=== PATIENT | male | born 1995 | race Caucasian/White ===

== ENCOUNTER 2016-05-02 10:06 | Emergency (ER) | payer MEDICAID, OTHER ==
[~2016-05-02] VITALS: Ht 188 cm; Wt 65.8 kg
[2016-05-02] MEDS ORDERED: IOHEXOL 300 MG/ML 100ML BOTTLE IJ ONE (10:13)
[2016-05-02] MEDS ORDERED: SODIUM CHLORIDE 0.9% 500 ML IV ONE ×2 (10:13→11:00)
[2016-05-02] MEDS ORDERED: MORPHINE SULFATE 4 MG/ML SYRG IV ONE (11:00)
[2016-05-02] MEDS ORDERED: ONDANSETRON HCL 4 MG/2 ML VIAL IV ONE (11:00)
[2016-05-02 11:11] LABS: Basophils # (auto) 0 uL; Basophils % (auto) 0.1 % (0.0-2.0); DEFINITIVE VIEW TRANSMISSION; Eosinophils # (auto) 0 uL; Hemoglobin 11.6 g/dL (13.5-17.5); Lymphocytes # (auto) 0.8 uL; Lymphocytes % (auto) 4.3 % (10.0-50.0); Mean Corpuscular Hemoglobin 30.6 pg (28.0-32.0); Mean Corpuscular Hgb Conc. 34.2 g/dL (32.0-36.0); Mean Corpuscular Volume 89.5 fL (80.0-100.0); Mean Platelet Volume 7.7 fL (7.4-10.4); Monocytes # (auto) 1.9 uL; Monocytes % (auto) 9.7 % (0.0-12.0); Neutrophils # (auto) 16.6 uL; Neutrophils % (auto) 85.9 % (37.0-80.0); Platelet Count (auto) 333 10^3/uL (140-450); Red Cell Distribution Width 13.2 % (11.6-16.0); White Blood Cell 19.4 10^3/uL (4.4-10.8)
[2016-05-02 11:26] LABS: INR 1.14 (0.9-1.15); Partial Thromboplastin Time 24.8 sec (22.64-33.71); Prothrombin Time 11.7 sec (9.37-12.3)
[2016-05-02 11:37] LABS: Albumin 3.8 g/dL (3.4-5.0); BUN/Creatinine Ratio 17.6; Bilirubin, Total 1.5 mg/dL (0.2-1.0); Calcium 8.8 mg/dL (8.5-10.1); Magnesium 2.2 mg/dL (1.6-2.6); Potassium 4.8 mmol/L (3.5-5.1); Total Protein 6.7 g/dL (6.4-8.2)
[2016-05-02 12:15] VITALS: BP 138/93
[2016-05-02 13:00] LABS: Urine Bilirubin Negative (Negative); Urine Blood Negative /uL (Negative); Urine Color Yellow (Yellow); Urine Glucose Normal (Normal); Urine Mucus FEW (None Seen); Urine Nitrite Negative (Negative); Urine RBC 1 /hpf (0 - 3); Urine Urobilinogen Normal (Negative)
[2016-05-02 13:16] LABS: Urine Ketone 1+ (Negative)
== END 2016-05-02 12:17 | disposition short-term general hospital (02) ==
LOC: EDBD 10:06 → ER 10:06
DX: S62.101A Fracture of unspecified carpal bone, right wrist, initial encounter for closed fracture (principal); S36.00XA Unspecified injury of spleen, initial encounter; F17.210 Nicotine dependence, cigarettes, uncomplicated; F12.10 Cannabis abuse, uncomplicated; W17.89XA Other fall from one level to another, initial encounter; Y93.44 Activity, trampolining; Y99.8 Other external cause status; Y92.89 Other specified places as the place of occurrence of the external cause
CPT/HCPCS: 29125; 36415; 51702; 71260; 73100; 74177; 80053; 81001; 83735; 85025; 85610; 85730; 86850; 86900; 86901; 96361; 96374; 96375; 99291; J2270; J2405; J7030; Q9967

== ENCOUNTER 2018-05-23 12:20 | Emergency (ER) | payer MEDICAID ==
[~2018-05-23] VITALS: Ht 185.4 cm; Wt 68.0 kg
[2018-05-23 13:08] VITALS: BP 139/77
== END 2018-05-23 14:07 | disposition home or self-care (01) ==
LOC: ER 12:24
DX: S63.501A Unspecified sprain of right wrist, initial encounter (principal); F17.210 Nicotine dependence, cigarettes, uncomplicated; F12.10 Cannabis abuse, uncomplicated; W01.0XXA Fall on same level from slipping, tripping and stumbling without subsequent striking against object, initial encounter; Y93.89 Activity, other specified; Y99.8 Other external cause status; Y92.89 Other specified places as the place of occurrence of the external cause
CPT/HCPCS: 73110

== ENCOUNTER 2025-01-21 11:25 | Day surgery (SDC) | payer MEDICAID ==
[~2025-01-21] VITALS: Ht 188 cm; Wt 70.3 kg
[~2025-01-21 11:25] MED LIST: HYDR1TAB97 PO; IBUP-1456 PO
[2025-01-21] MEDS ORDERED: HYDROmorphone HCL 2 MG/ML VL/or syr IV PRN (13:00)
[2025-01-21] MEDS ORDERED: ONDANSETRON HCL 4 MG/2 ML VIAL ONE (13:02)
[2025-01-21] MEDS ORDERED: fentaNYL CITRATE 100 MCG/2 ML VL ONE (13:02)
[2025-01-21] MEDS ORDERED: MIDAZOLAM HCL 2MG/2ML 2ml VIAL (1mg/ml) ONE (13:02)
[2025-01-21] MEDS ORDERED: LIDOCAINE 2% (LOCAL ANESTH.) PF 5ml SDV ONE (13:02)
[2025-01-21] MEDS ORDERED: METOCLOPRAMIDE HCL 5MG/ml INJ 2ml VIAL ONE (13:02)
[2025-01-21] MEDS ORDERED: PROPOFOL 10 MG/ML 20 ML IV ONE (13:03)
[2025-01-21] MEDS ORDERED: ROCURONIUM 10MG/ML 10ML VIAL IV ONE (13:03)
[2025-01-21] MEDS: ceFAZolin 2 GM/D5W50ml 50 ML IV ONE (14:00)
[2025-01-21] MEDS ORDERED: HYDROmorphone HCL 2 MG/ML VL/or syr ONE (14:10)
[2025-01-21] MEDS ORDERED: hydrALAZINE HCL 20 MG/ML VL ONE (14:15)
[2025-01-21] MEDS ORDERED: SODIUM CHLORIDE LOCK 10 ML ONE (14:16)
[2025-01-21] MEDS ORDERED: SUGAMMADEX 200mg/2ml Vial (100MG/ML) IV ONE (15:03)
--- NOTE | 2025-01-21 15:25 | DVHOP2 ---
Operative Report - 2 Report Details Date: 01/21/25 Preop Diagnosis: Left displaced clavicle fracture subacute Postop Diagnosis: Left displaced subacute clavicle fracture Surgeon: Harrison Louis MD Informatics Developer: Dean CARR Anesthesiologist: Jeremy Anesthesia: General, Regional Implant: Jerica clavicle plate and seven screws Consent: The patient was informed of the risks and benefits of the procedure. These in clude but are not limited to complications of anesthesia, postoperative infection, incomplete relief of symptoms, recurrence of symptoms, damage to blood vessels, nerves and tendons, deep venous thrombosis, pulmonary embolism and possible need for repeat surgery in the future. Complications: None Estimated Blood Loss: 50 cc Fluids: See anesthesia record Findings: Subacute displaced clavicle fracture with exuberant callus formation left side Indications for Surgery: Severely displaced left clavicle fracture with skin tenting Name of Procedure Performed Open reduction internal fixation left clavicle shaft fracture C-arm fluoroscopy Procedure Details Procedure Details: Patient was brought to the operating room and placed on the table in the supine position. Preop patient received IV Ancef. Patient was set up in the beach chair position. All appropriate precautions taken to protect the neck and lower extremities. C-arm was brought in to verify adequate visualization. The left shoulder and upper extremity were prepped and draped in sterile fashion. Surgical time-out was performed verifying patient, laterality, and procedure. Incision was made over the clavicle. Subcutaneous dissection and hemostasis were performed with Bovie. I elevated soft tissue which was attached to the clavicle fragments to adequately free up the medial and lateral fragments for open reduction. I used a elevator, Bovie, curette, and rongeur. During the process I had to remove a great deal of callus formation. Reduction verified with forceps. I then applied a clavicle plate to the dorsal clavicle and fixed it medially and laterally with K-wires. I then drilled one of the medial holes, used depth gauge and applied screw. Similarly I applied a screw laterally. I then removed the K-wires. C-arm was brought in to verify plate position and screw length. Additional screws were placed medially and laterally with similar technique. Screws that were too long were swapped out as needed. Final C-arm views confirmed fracture reduction and hardware placement. Direct visualization confirmed that reduction and hardware placement. I irrigated the wound copiously with normal saline bulb syringe. Fascial tissue was closed with 0 Vicryl interrupted [id number]. SubQ was closed with 2-0 Vicryl. Skin was closed with a subcuticular 3-0 Monocryl. We then applied the Prineo dressing. Wound was additionally dressed with ABD. Sling reapplied. Patient tolerated the procedure well and was brought to recovery room in stable condition. Plan was for left shoulder block to be performed by anesthesia in the OR prior to PAC U. Condition Stable Disposition Home HARRISON LOUIS MD Jan 21, 2025 15:25
[2025-01-21 15:39] VITALS: TEMP 98.5; O2SAT 100
[2025-01-21] MEDS: ACETAMINOPHEN IV 1000 MG/100ML (10MG/ML) IV ONE (16:00)
[2025-01-21] MEDS: ONDANSETRON HCL 4 MG/2 ML VIAL IV PRN (16:10)
[2025-01-21] MEDS: MEPERIDINE HCL (25 MG/ML) 1ML VIAL IM ONE (16:21)
--- NOTE | 2025-01-21 16:23 | DVH ---
CLINICAL INDICATION: LEFT CLAVICLE ORIF TECHNIQUE: 3 radiographic views of the 3 images of any internal fixation of the left clavicle fracture. 1 image of dose summary sheet. were obtained. COMPARISON: XR CLAVICLE LEFT on DOS: 01/03/25 FINDINGS/IMPRESSION: Total fluoro time 14.4 seconds Cumulative dose: 0.78 mGy
--- NOTE | 2025-01-21 16:24 | DVH ---
C-ARM FLUOROSCOPY: PROCEDURE: 1 image of dose summary sheet on a ORIF left clavicle fracture FLUOROSCOPY TIME: 14.4 seconds Air Kerma: 0.78mGy mgy FINDINGS: Spot intraoperative C arm radiographs demonstrating only 1 image dose summary sheet currently received.. IMPRESSION: 1. Please refer to surgical report for detailed findings.
[2025-01-21] MEDS: METOCLOPRAMIDE HCL 5MG/ml INJ 2ml VIAL IV PRN (16:44)
[2025-01-21 16:50] VITALS: BP 145/83; PULSE 91; RESP 14; O2SAT 95
== END 2025-01-21 17:00 | disposition home or self-care (01) ==
LOC: SUR 11:25
PROVIDERS: ATTEND Orthopaedic Surgery
DX: S42.022A Displaced fracture of shaft of left clavicle, initial encounter for closed fracture (principal); I10 Essential (primary) hypertension; Z88.8 Allergy status to other drugs, medicaments and biological substances; Z91.040 Latex allergy status; X58.XXXA Exposure to other specified factors, initial encounter; Y93.89 Activity, other specified; Y92.89 Other specified places as the place of occurrence of the external cause; Y99.8 Other external cause status
CPT/HCPCS: 23515; 73000; C1713; J0360; J0690; J1100; J1171; J2003; J2175; J2250; J2405; J2704; J2765; J3010; 76000; J0131